=== PATIENT | male | born 1965 | race Caucasian/White ===

== ENCOUNTER 2017-07-07 07:30 | Inpatient (IN) | payer BC ==
[~2017-07-07] VITALS: Ht 179.1 cm; Wt 107.8 kg
[2017-07-15] MEDS ORDERED: SIMV20TA5 PO (14:47)
[2017-07-15] MEDS ORDERED: LEVO100T9 PO (14:47)
[2017-07-15] MEDS ORDERED: ASPI-611 PO (14:47)
[2017-07-15] MEDS ORDERED: MELO-102 PO (14:47)
[2017-07-15] MEDS ORDERED: LISI1TAB13 PO (14:47)
[2017-07-15] MEDS ORDERED: ALLO100T PO (14:47)
[2017-07-15] MEDS ORDERED: HYDR-565 PO (14:47)
[2017-07-15 14:52] LABS: PRE OP PROTIME 10.1 SECONDS (9.0-12.0)
[2017-07-15 14:58] LABS: ALBUMIN 3.8 G/DL (3.4-5.0); ALBUMIN/GLOBULIN RATIO 1.2 (1.1-1.5); ALKALINE PHOSPHATASE 59 IU/L (46-116); BASOPHILS % (AUTO) 0.5 % (0-1); BLOOD UREA NITROGEN 17 MG/DL (7-18); CALCIUM 8.9 MG/DL (8.5-10.1); CHLORIDE 104 MMOL/L (99-107); EOSINOPHILS # (AUTO) 0.2 X10'3 (0-0.9); EOSINOPHILS % (AUTO) 2.3 % (0-6); LYMPHOCYTES # (AUTO) 1.7 X10'3 (1.1-4.8); MEAN CORPUSCULAR HEMOGLOBIN 31.2 PG (27.0-31.0); MEAN CORPUSCULAR HGB CONC 34.8 % (33.0-36.5); MEAN CORPUSCULAR VOLUME 89.4 FL (78-98); MEAN PLATELET VOLUME 8.2 FL (7.4-10.4); MONOCYTES # (AUTO) 0.8 X10'3 (0-0.9); NEUTROPHILS # (AUTO) 4.7 X10'3 (1.8-7.7); NEUTROPHILS % (AUTO) 63.2 % (42-75); PRE OP ALT 36 U/L (30-65); PRE OP ANION GAP 4 (8-16); PRE OP AST 13 U/L (10-37); PRE OP GLUCOSE 163 MG/DL (70-104); PRE OP HEMATOCRIT 42.8 % (42.0-52.0); PRE OP HEMOGLOBIN 14.9 g/dL (14.0-17.9); PRE OP PLATELET COUNT 233 X10'3 (140-440); PRE OP POTASSIUM 3.9 MMOL/L (3.4-5.1); PRE OP SODIUM 141 MMOL/L (135-145); RED BLOOD COUNT 4.79 X10'6 (4.70-6.10); RED CELL DISTRIBUTION WIDTH 12.1 % (11.5-14.5); eGFR 78 ML/MIN
[2017-07-21] VITALS (16 sets, daily range): BP systolic 117–151; BP diastolic 65–108
[2017-07-21] MEDS ORDERED: NORMAL SALINE IV ONE ×2 (10:21→10:25)
[2017-07-21] MEDS ORDERED: VANCOMYCIN INJ 1000 MG in NORMAL SALINE 250ml IV.SOLN IV ONE (10:21)
[2017-07-21] MEDS ORDERED: ringers solution, lacted 1,000 ML IV SCH ×2 (10:21→14:15)
[2017-07-21] MEDS ORDERED: TRANEXAMIC ACID IV ONE ×2 (10:21→10:25)
[2017-07-21] MEDS ORDERED: cefazolin/dext.iso 2gm/50ml 50 ML IV ONE (10:22)
[2017-07-21] MEDS ORDERED: famotidine 20mg tablet PO ONE (10:33)
[2017-07-21] MEDS ORDERED: tetracaine 1% (10mg/ml) pres. free inj. ONE (11:48)
[2017-07-21] MEDS ORDERED: ROPIVAcaine 0.5% (5mg/ml) 30ml vial ONE ×2 (11:48→13:33)
[2017-07-21] MEDS ORDERED: fentaNYL/PF 50MCG/1 ML 2ML syringe ONE (13:32)
[2017-07-21] MEDS ORDERED: MIDAZolam 1mg/ml 10ml vial ONE (13:32)
[2017-07-21] MEDS ORDERED: ketorolac trometh. 30mg/ml inj. ONE (13:33)
[2017-07-21] MEDS ORDERED: vancomycin 1,000mg inj ONE (13:33)
[2017-07-21] MEDS ORDERED: propofol inj 20 ML IV ONE ×2 (13:48)
[2017-07-21] MEDS ORDERED: ondansetron/PF 4mg/2ml inj IV PRN ×2 (14:15→16:25)
[2017-07-21] MEDS ORDERED: labetalol 5mg/ml 20ml inj. IV PRN (14:15)
[2017-07-21] MEDS ORDERED: hydrALAZINE 20mg/ml inj. IV PRN (14:15)
[2017-07-21] MEDS ORDERED: meperidine/PF 25mg/ml syringe IV PRN ×2 (14:15)
[2017-07-21] MEDS ORDERED: morphine 2 MG/ML inj. syringe IV PRN ×4 (14:15→17:20)
[2017-07-21] MEDS ORDERED: acetaminophen 325mg tablet PO PRN (16:25)
[2017-07-21] MEDS ORDERED: diphenhydrAMINE 25mg capsule PO PRN ×2 (16:25)
[2017-07-21] MEDS ORDERED: HYDROmorphone 1 mg/ml syringe IV PRN ×2 (16:25)
[2017-07-21] MEDS ORDERED: oxyCODONE IR 5mg (immed. release) tablet PO PRN (16:25)
[2017-07-21] MEDS ORDERED: bisacodyl 10mg suppository rectal RC PRN (16:25)
[2017-07-21] MEDS ORDERED: magnesium hydroxide 30ml (MOM) UD suspension PO PRN (16:25)
[2017-07-21] MEDS: potassium cl 20mEq in 1/2 NS 1,000 ML IV SCH (17:38)
[2017-07-21] MEDS ORDERED: tranexamic acid inj. 1,080 MG in normal saline 100ml IV soln 100 ML IV ONE (19:30)
[2017-07-21] MEDS ORDERED: vancomycin/NS 1 GM ADD-VANTAGE 250 ML IV SCH (20:00)
[2017-07-21] MEDS: acetaminophen 325mg tablet PO SCH (20:58)
[2017-07-21] MEDS: gabapentin 300mg capsule PO SCH (20:58)
[2017-07-21] MEDS: ketorolac tromethamine 15mg/ml inj. IV SCH (20:59)
[2017-07-21] MEDS: allopurinol 100mg tablet PO SCH (20:59)
[2017-07-21] MEDS ORDERED: sennosides 8.6mg tablet PO SCH (21:00)
[2017-07-21] MEDS: cefazolin 1gm/NS 100mL 100 ML IV SCH (23:37)
[2017-07-22 02:00] VITALS: BP 126/83
[2017-07-22] MEDS: acetaminophen 325mg tablet PO SCH ×2 (02:08→07:21)
[2017-07-22] MEDS: ketorolac tromethamine 15mg/ml inj. IV SCH ×2 (02:08→07:20)
[2017-07-22] MEDS: potassium cl 20mEq in 1/2 NS 1,000 ML IV SCH ×2 (03:31→07:19)
[2017-07-22] MEDS: oxyCODONE IR 5mg (immed. release) tablet PO PRN ×2 (05:03→09:12)
[2017-07-22 05:51] LABS: BASOPHILS % (AUTO) 0 % (0-1); EOSINOPHILS % (AUTO) 0.1 % (0-6); HEMATOCRIT 35.2 % (42.0-52.0); HEMOGLOBIN 12.6 g/dl (14.0-17.9); LYMPHOCYTES # (AUTO) 0.8 X10'3 (1.1-4.8); LYMPHOCYTES % (AUTO) 10.1 % (21-51); MEAN CORPUSCULAR HEMOGLOBIN 31.9 PG (27.0-31.0); MEAN CORPUSCULAR HGB CONC 35.8 % (33.0-36.5); MEAN CORPUSCULAR VOLUME 89.2 FL (78-98); MEAN PLATELET VOLUME 7.6 FL (7.4-10.4); MONOCYTES # (AUTO) 0.4 X10'3 (0-0.9); MONOCYTES % (AUTO) 5.9 % (2-12); NEUTROPHILS # (AUTO) 6.4 X10'3 (1.8-7.7); NEUTROPHILS % (AUTO) 83.9 % (42-75); PLATELET COUNT 190 X10'3 (140-440); RED BLOOD COUNT 3.95 X10'6 (4.70-6.10); RED CELL DISTRIBUTION WIDTH 12.3 % (11.5-14.5); WHITE BLOOD COUNT 7.6 X10'3 (4.5-11.0)
[2017-07-22 06:00] LABS: ANION GAP 7 (8-16); CHLORIDE 104 MMOL/L (99-107); POTASSIUM 4.6 MMOL/L (3.5-5.1); SODIUM 138 MMOL/L (135-145); TOTAL CARBON DIOXIDE 27.2 MMOL/L (24-32)
[2017-07-22 07:00] VITALS: BP 127/86
[2017-07-22] MEDS: cefazolin 1gm/NS 100mL 100 ML IV SCH (07:19)
[2017-07-22] MEDS: allopurinol 100mg tablet PO SCH (07:20)
[2017-07-22] MEDS: gabapentin 300mg capsule PO SCH (07:20)
[2017-07-22] MEDS ORDERED: lisinopril 20mg tablet PO SCH (08:00)
[2017-07-22] MEDS ORDERED: atorvastatin 10mg tablet PO SCH (08:00)
[2017-07-22] MEDS ORDERED: levoTHYROXINE 100mcg tablet PO SCH (08:00)
[2017-07-22] MEDS ORDERED: non-formulary drug (Aspirin (Aspir 81) 1 TAB) PO SCH (08:00)
[2017-07-22] MEDS ORDERED: aspirin 325mg tablet PO SCH (08:30)
[2017-07-22] MEDS ORDERED: ASPI-1 PO (10:22)
[2017-07-22 11:54] VITALS: BP 127/83
[2017-07-23] MEDS ORDERED: naproxen 500mg tablet PO SCH (07:30)
[2017-07-23] MEDS ORDERED: celeCOXIB 100mg capsule PO SCH (08:00)
[2017-07-23] MEDS ORDERED: acetaminophen 325mg tablet PO PRN (16:25)
== END 2017-07-22 12:25 | disposition home or self-care (01) | DRG 470 ==
LOC: PAS IN 07-21 10:04 → EDSTATUS 07-21 12:30 → ORTHO 4S 07-21 17:25
PROVIDERS: ADMIT Orthopaedic Surgery; ATTEND Orthopaedic Surgery
PROC: 3E0T3BZ Introduction of Anesthetic Agent into Peripheral Nerves and Plexi, Percutaneous Approach (ICD-10-PCS; 2017-07-21)
PROC: 0SRD0JZ Replacement of Left Knee Joint with Synthetic Substitute, Open Approach (ICD-10-PCS; principal; 2017-07-21 13:25)
DX: M17.12 Unilateral primary osteoarthritis, left knee (principal); D62 Acute posthemorrhagic anemia; E03.9 Hypothyroidism, unspecified; E78.5 Hyperlipidemia, unspecified; I10 Essential (primary) hypertension; M10.9 Gout, unspecified; Z83.3 Family history of diabetes mellitus; Z82.49 Family history of ischemic heart disease and other diseases of the circulatory system; Z82.3 Family history of stroke
CPT/HCPCS: 36415; 80051; 80053; 85025; 85610; 85730; 87070; 93005; 97116; 97161; 97530; A6449; A6455; A7000; C1713; C1758; C1776; J0690; J1885; J2250; J2704; J2795; J3010; J3370; J7030; J7120

== ENCOUNTER 2017-07-29 12:13 | Emergency (ER) | payer BC ==
[~2017-07-29] VITALS: Ht 177.8 cm; Wt 109.1 kg
[~2017-07-29 12:13] MED LIST: ALLO100T PO; ASPI-1 PO; HYDR-565 PO; LEVO100T9 PO; LISI1TAB13 PO; MELO-102 PO; SIMV20TA5 PO
[2017-07-29 14:31] LABS: BASOPHILS % (AUTO) 0.1 % (0-1); EOSINOPHILS # (AUTO) 0.4 X10'3 (0-0.9); EOSINOPHILS % (AUTO) 4.8 % (0-6); HEMATOCRIT 36.6 % (42.0-52.0); HEMOGLOBIN 13.1 g/dl (14.0-17.9); LYMPHOCYTES # (AUTO) 1.5 X10'3 (1.1-4.8); LYMPHOCYTES % (AUTO) 19.9 % (21-51); MEAN CORPUSCULAR HEMOGLOBIN 32.7 PG (27.0-31.0); MEAN CORPUSCULAR HGB CONC 35.8 % (33.0-36.5); MEAN CORPUSCULAR VOLUME 91.4 FL (78-98); MEAN PLATELET VOLUME 7.5 FL (7.4-10.4); MONOCYTES # (AUTO) 0.7 X10'3 (0-0.9); MONOCYTES % (AUTO) 9.6 % (2-12); NEUTROPHILS % (AUTO) 65.6 % (42-75); PLATELET COUNT 270 X10'3 (140-440); RED CELL DISTRIBUTION WIDTH 12.8 % (11.5-14.5); WHITE BLOOD COUNT 7.6 X10'3 (4.5-11.0)
[2017-07-29 14:47] LABS: ALANINE AMINOTRANSFERASE 29 U/L (12-78); ALBUMIN 3.2 G/DL (3.4-5.0); ALBUMIN/GLOBULIN RATIO 0.8 (1.1-1.5); ALKALINE PHOSPHATASE 80 IU/L (46-116); ANION GAP 5 (8-16); ASPARTATE AMINO TRANSFERASE 13 U/L (10-37); BILIRUBIN,TOTAL 0.7 MG/DL (0.1-1.0); BLOOD UREA NITROGEN 20 MG/DL (7-18); BUN/CREATININE RATIO 20.2 (5.4-32.0); CALCIUM 9.1 MG/DL (8.5-10.1); CHLORIDE 97 MMOL/L (99-107); CREATININE 0.99 MG/DL (0.60-1.10); GLUCOSE 301 MG/DL (70-104); POTASSIUM 4.4 MMOL/L (3.5-5.1); SODIUM 135 MMOL/L (135-145); TOTAL CARBON DIOXIDE 33.4 MMOL/L (24-32); eGFR 79 ML/MIN
[2017-07-29] MEDS ORDERED: HYDROcodone/acetaminophen 5mg/325mg tablet PO ONE (14:55)
[2017-07-29] MEDS ORDERED: CEPH500C5 PO (16:03)
[2017-07-29] MEDS ORDERED: SULF1TAB49 PO (16:03)
[2017-07-29] MEDS ORDERED: NICO-687 TOP (16:10)
[2017-07-29 16:23] VITALS: BP 122/78
== END 2017-07-29 16:25 | disposition home or self-care (01) ==
LOC: ER 12:13
DX: L03.116 Cellulitis of left lower limb (principal); F17.210 Nicotine dependence, cigarettes, uncomplicated; Z96.652 Presence of left artificial knee joint; Z71.6 Tobacco abuse counseling; Z79.82 Long term (current) use of aspirin; Z98.890 Other specified postprocedural states; Z79.899 Other long term (current) drug therapy
CPT/HCPCS: 36415; 80053; 83605; 85025; 87040; 93970; 99285; 99406